=== PATIENT | female | born 1990 ===

== ENCOUNTER 2019-05-25 21:54 | Outpatient (CLI) | payer OTHER ==
[2019-05-25 22:11] VITALS: BP 115/62
[2019-05-25] MEDS ORDERED: LACTATED RINGERS 1,000 ML IV ONE (22:21)
== END 2019-05-25 22:53 | disposition home or self-care (01) ==
LOC: TRG 21:54
PROVIDERS: ATTEND Obstetrics & Gynecology
DX: O36.8120 Decreased fetal movements, second trimester, not applicable or unspecified (principal); Z3A.23 23 weeks gestation of pregnancy

== ENCOUNTER 2019-09-08 13:06 | Inpatient (IN) | payer OTHER ==
--- NOTE | 2019-09-08 15:18 | Ultrasound Report ---
ULTRASOUND BIOPHYSICAL PROFILE ULTRASOUND OB LIMITED INDICATION: Decreased movement TECHNIQUE: Transabdominal ultrasound imaging. COMPARISON: None FINDINGS: breathing movement = 2 Gross body movement = 2 tone = 0 Qualitative amniotic fluid volume = 0 Total biophysical score = 4/8 Amniotic fluid index is 5.2 cm. Presentation is cephalic. heart rate is 143 beats per minute. IMPRESSION: biophysical profile equals 4/8. Oligohydramnios. Signer Name: Dontae Hernandes Jr, MD Signed: 09/08/2019 3:14 PM Workstation Name: [id number]
[2019-09-08] MEDS ORDERED: OXYTOCIN 20 UNIT/1000ML DRIP 20 UNITS/1,000 ML BAG IV SCH ×2 (16:00→22:00)
[2019-09-08] MEDS ORDERED: TERBUTALINE 1 MG/1 ML INJ SUB-Q PRN (16:00)
[2019-09-08] MEDS ORDERED: LACTATED RINGERS 1,000 ML IV SCH (16:00)
[2019-09-08] MEDS ORDERED: TERBUTALINE 1 MG/1 ML INJ IVP PRN (16:00)
[2019-09-08] MEDS ORDERED: ePHEDrine SULFATE 50 MG/1 ML INJ IV PRN (16:30)
[2019-09-08] MEDS ORDERED: fentaNYL 100 MCG/2 ML INJ IV PRN (16:30)
[2019-09-08] MEDS ORDERED: BUTORPHANOL 2 MG/1 ML INJ IV PRN (16:30)
[2019-09-08] MEDS ORDERED: MINERAL OIL 30 ML ORAL LIQD PO PRN (16:30)
[2019-09-08] MEDS ORDERED: LIDOCAINE (2%) 20 MG/1 ML VIAL 20 ML MDV INFILTRATI NR (16:30)
[2019-09-08 16:33] LABS: Hematocrit 35.8 % (30.3-42.9); Hemoglobin 12.1 gm/dl (10.1-14.3); Mean Corpuscular HGB Conc 34 % (30-34); Mean Corpuscular Volume 86 fl (79-97); Platelet Count 207 K/mm3 (140-440); Red Blood Count 4.17 M/mm3 (3.65-5.03); Red Cell Distribution Width 14.7 % (13.2-15.2)
[2019-09-08] MEDS ORDERED: OXYTOCIN DRIP 30 UNITS/500 ML BAG IV SCH (17:00)
--- NOTE | 2019-09-08 17:36 | History and Physical Report ---
History of Present Illness Date of examination: 09/08/19 Date of admission: 09/08/19 13:07 Chief complaint: Decreased movement History of present illness: 28yo G 4 P 3 0 0 3 @ 39 weeks 0 day sent from the office for NST/BPP/DEANA secondary to decreased movement. BPP 4/, DEANA 5.2cm. She reports cramping but denies VB or LOF. She is a [employer] patient who initiated care at 19 weeks gestation. Her course was complicated by GDM diet-controlled (blood sugar this AM 88, per pt), late entry to care, and UTI. LABS: Opos, Antibody Screen neg, RI, VDRL NR, HBsAg neg, HIV neg, MSAFP neg, GC/CT/Trich neg, GBS neg Past History Past Medical History: other ( depression) Past Surgical History: no surgical history Family/Genetic History: none Social history: , lives with family, full code. denies: smoking, alcohol abuse, prescription drug abuse, IV drug use - Obstetrical History Expected Date of Delivery: 09/15/19 Actual Gestation: 39 Week(s) 0 Day(s) : 4 Para: 3 Hx # Term Pregnancies: 3 Number of Pregnancies: 0 Spontaneous Abortions: 0 Induced : 0 Number of Living Children: 3 #1 Gender: Female year: 2,[birth year] (06/08/2007) Birthweight: 3.629 kg (8 lbs) Method of Delivery: Vaginal Complications: none #2 Infant Gender: Female year: 2,011 (09/16/2008) Birthweight: 3.175 kg (7 lbs) Method of Delivery: Vaginal Complications: none #3 Gender: Male year: 2,[birth year] (07/29/2013) Birthweight: 3.345 kg (7 lbs 6 oz) Method of Delivery: Vaginal Complications: none Medications and Allergies Allergies Allergy/AdvReac Type Severity Reaction Status Date / Time No Known Allergies Allergy Verified 07/29/15 03:27 Home Medications Medication Instructions Recorded Confirmed Last Taken Type Vit-Fe Fumar-FA [ 1 tab PO DAILY 05/25/19 09/08/19 09/08/19 08:00 History Vitamin] Active Meds: Active Medications Butorphanol Tartrate (Stadol) 2 mg IV Q2H PRN PRN Reason: Pain , Severe (7-10) Ephedrine Sulfate (Ephedrine Sulfate) 10 mg IV Q2M PRN PRN Reason: Hypotension Fentanyl (Sublimaze) 100 mcg IV Q2H PRN PRN Reason: Labor Pain Oxytocin/Sodium Chloride (Pitocin/Ns 20 Unit/1000ml Drip) 20 units in 1,000 mls @ 125 mls/hr IV DIRECT MELE Lactated Ringer's (Lactated Ringers) 1,000 mls @ 125 mls/hr IV DIRECT MELE Oxytocin/Sodium Chloride (Pitocin/Ns 30 Unit/500ml) 30 units in 500 mls @ 2 mls/hr IV TITR MELE; Protocol Lidocaine (Xylocaine 2%) 20 ml INFILTRATI ONCE NR Stop: 09/09/19 16:29 Mineral Oil (Mineral Oil) 30 ml PO QHS PRN PRN Reason: Constipation Terbutaline Sulfate (Brethine) 0.25 mg SUB-Q ONCE PRN PRN Reason: Hyperstimulation/Hypertonicity Terbutaline Sulfate (Brethine) 0.25 mg IVP ONCE PRN PRN Reason: Hyperstimulation/Hypertonicity Review of Systems All systems: negative - Vital Signs Vital signs: Vital Signs Pulse Pulse Ox 85 95 09/08/19 13:42 09/08/19 13:42 Temp Pulse Resp BP Pulse Ox 98.7 F 87 20 122/70 98 09/08/19 13:46 09/08/19 17:24 09/08/19 13:46 09/08/19 17:24 09/08/19 17:02 - Physical Exam Abdomen: Positive: normal appearance, soft Genitourinary (Female): Positive: other (skin tag noted right inner thigh) Vagina: Positive: normal moisture - Obstetrical FHR: auscultation normal, category 1 FHR comments: baseline 130, moderate variability, 15x15 accels, no decels Uterine Contraction Monitor Mode: External Cervical Dilatation: 4 Cervical Effacement Percentage: 60 station: -2 Uterine Contraction Pattern: Regular Results Result Diagrams: 09/08/19 16:15 All other labs normal. Assessment and Plan - Patient Problems (1) 39 weeks gestation of Current Visit: Yes Status: Acute (2) Oligohydramnios in berkowitz in third trimester Current Visit: Yes Status: Acute (3) Abnormal test Current Visit: Yes Status: Acute (4) Encounter for induction of labor Current Visit: Yes Status: Acute Plan to address problem: Admit to L&D with routine labor orders Discussed plan of care with Dr. Delcid. He recommended AROM & Pitocin au gmentation AROM @ 17:21. No fluid noted Pitocin ordered for labor augmentation Patient left in the care of Dr. Delcid Anticipate vaginal delivery (5) Gestational diabetes mellitus, class A1 Current Visit: Yes Status: Acute Plan to address problem: Accuchecks q4hr
--- NOTE | 2019-09-08 21:24 | Procedure Note ---
OB Delivery Note - Delivery Date of Delivery: 09/08/19 Surgeon: LUKE SOTO Estimated blood loss: 200cc - Vaginal Delivery position: OA Delivery induction: oxytocin Delivery augmentation: rupture of membranes Delivery monitor: external FHT Route of delivery: Delivery placenta: spontaneous Delivery cord: 3 umbilical vessels Episiotomy: none Delivery laceration: none Anesthesia: none Delivery comments: The anterior shoulder was delivered without difficulty. Baby was bulb suctioned at the perineum and again after delivery. Delayed cord clamping was done. After the cord was cut the baby is handed off to the waiting team. No lacerations were noted. Placenta delivered spontaneously. Good hemostasis noted. Mother and baby are stable. Patient tolerated the delivery well. - Infant A at 1 minute: 8 at 5 minutes: 9 Infant Gender: Female
[2019-09-08] MEDS ORDERED: LANOLIN/ZINC/DIMETHICONE (LANSINOH) 7 GM TP PRN ×2 (21:25)
[2019-09-08] MEDS ORDERED: WITCH HAZEL/ GLYCERIN PAD TP PRN (21:25)
[2019-09-08] MEDS ORDERED: PROMETHAZINE 25 MG RECT SUPP PR PRN (21:25)
[2019-09-08] MEDS ORDERED: PROMETHAZINE 25 MG TAB PO PRN (21:25)
[2019-09-08] MEDS ORDERED: BENZOCAINE/MENTHOL 20/0.5% TOP SPRAY 56 GM TP PRN (21:25)
[2019-09-08] MEDS ORDERED: diphenhydrAMINE 25 MG CAP PO PRN (21:25)
[2019-09-08] MEDS ORDERED: HYDROCORTISONE 25 MG RECTAL SUPP PR PRN (21:25)
[2019-09-08] MEDS ORDERED: ACETAMINOPHEN 325 MG TAB PO PRN (21:25)
[2019-09-08] MEDS ORDERED: MAGNESIUM HYDROXIDE (MOM) ORAL LIQD UDC PO PRN (21:25)
[2019-09-08] MEDS ORDERED: ONDANSETRON 4 MG/2 ML INJ IV PRN (21:25)
[2019-09-08] MEDS ORDERED: IBUPROFEN 600 MG TAB PO SCH (22:00)
[2019-09-09] MEDS: DOCUSATE SODIUM 100 MG CAP PO SCH ×3 (00:09→22:45)
[2019-09-09] MEDS: IBUPROFEN 600 MG TAB PO SCH ×5 (00:09→22:45)
[2019-09-09] MEDS: SENNOSIDES/DOCUSATE SODIUM 8.6/50 MG TAB PO SCH ×3 (00:09→22:47)
[2019-09-09 05:59] LABS: Hematocrit 33.9 % (30.3-42.9); Hemoglobin 11.3 gm/dl (10.1-14.3)
--- NOTE | 2019-09-09 09:44 | Progress Note ---
Assessment and Plan - Patient Problems (1) (normal spontaneous vaginal delivery) Current Visit: Yes Status: Acute Plan to address problem: Continue routine PP orders Anticipate d/c home tomorrow (2) Gestational diabetes mellitus, class A1 Current Visit: Yes Status: Acute Plan to address problem: Blood glucose results all normal since delivery Hgb A1c 6 mths Subjective - Subjective Date of service: 09/09/19 Principal diagnosis: S/P ; PPD#1 Interval history: See admission H & P; OB delivery summary and PP progress notes Patient reports: appetite normal, voiding normally, pain well controlled (with medications), flatus, ambulating normally [place]: doing well, bottle feeding Objective - Vital Signs Latest vital signs: Vital Signs Temp Pulse Resp BP BP Pulse Ox 09/09/19 06:16 18 09/09/19 05:17 98.0 F 81 18 106/67 92 09/09/19 05:16 18 09/09/19 01:09 18 09/09/19 00:09 18 09/08/19 23:32 97.6 F 80 18 125/83 99 09/08/19 20:42 106 H 96 09/08/19 20:39 99 H 94 09/08/19 20:37 95 H 95 09/08/19 20:32 114 H 98 09/08/19 20:30 109 H 95 09/08/19 20:25 109 H 96 09/08/19 20:24 106 H 121/78 09/08/19 20:20 93 H 97 09/08/19 20:15 107 H 97 09/08/19 20:10 89 96 09/08/19 20:05 90 96 09/08/19 20:03 97 H 94 09/08/19 20:00 99 H 96 09/08/19 19:56 86 94 09/08/19 19:55 91 H 94 09/08/19 19:54 88 120/70 09/08/19 19:50 96 H 96 09/08/19 19:45 103 H 97 09/08/19 19:40 88 97 09/08/19 19:35 90 97 09/08/19 19:30 99 H 95 09/08/19 19:25 98 H 108/69 96 09/08/19 19:20 96 H 97 09/08/19 19:18 105 H 94 09/08/19 19:15 101 H 96 09/08/19 19:10 96 H 96 09/08/19 19:05 93 H 97 09/08/19 19:00 101 H 97 09/08/19 18:55 90 97 09/08/19 18:54 104 H 107/63 09/08/19 18:50 100 H 97 09/08/19 18:45 89 97 09/08/19 18:40 82 96 09/08/19 18:38 14 09/08/19 18:35 82 98 09/08/19 18:30 82 98 09/08/19 18:25 83 99 09/08/19 18:24 82 130/74 09/08/19 18:20 85 98 09/08/19 18:15 80 97 09/08/19 17:55 89 117/72 09/08/19 17:24 87 122/70 09/08/19 17:23 98.1 F 09/08/19 17:02 93 H 98 09/08/19 16:54 80 116/70 09/08/19 16:24 92 H 123/83 09/08/19 16:21 93 H 98 09/08/19 16:16 85 96 09/08/19 16:11 104 H 96 09/08/19 16:06 83 98 09/08/19 15:54 79 18 112/71 98 09/08/19 15:34 87 97 09/08/19 15:29 94 H 96 09/08/19 15:28 93 H 92 09/08/19 15:24 91 H 96 09/08/19 15:19 88 96 09/08/19 15:14 90 96 09/08/19 15:09 81 114/70 97 09/08/19 13:55 104 H 94 09/08/19 13:52 106 H 96 09/08/19 13:47 95 H 96 09/08/19 13:46 98.7 F 98 H 20 124/78 96 09/08/19 13:45 91 H 124/78 09/08/19 13:42 85 95 Intake and Output 09/08/19 09/09/19 09/09/19 23:59 07:59 15:59 Intake Total 3.200 360 Output Total 500 Balance 3.200 -140 Intake: IV 3.200 PITOCin/NS 30 UNIT/500ML 3.200 30 units In 500 ml @ 2 MILLIUNITS/MIN 2 mls/hr IV TITR MELE Rx#:[id number] Intake, Free Water 360 Output: Urine 500 Void 500 Other: Total, Output Amount 500 Estimated Blood Loss 200 - Exam Breasts: Present: normal Cardiovascular: Present: Regular rate Lungs: Present: Normal air movement Abdomen: Present: soft Uterus: Present: firm, fundal height below umbilicus (U-1) Extremities: Present: normal Deep Tendon Reflex Grade: Normal +2 - Labs Labs: Abnormal lab results 09/08/19 09/08/19 09/09/19 Range/Units 18:18 19:32 02:18 POC Glucose 60 L 68 L 109 H (70-105)
--- NOTE | 2019-09-09 09:46 | Discharge Summary ---
Providers - Providers Date of Admission: 09/08/19 13:07 Date of discharge: 09/10/19 (1200) Attending physician: LUKE SOTO Primary care physician: LUKE SOTO Hospitalization Reason for admission: active labor, IUP at term Delivery: Episiotomy: none Laceration: none Other procedures: none complications: none Discharge diagnosis: other (S/P ) [place] baby: female Hospital course: See admission H & P; OB delivery summary and PP progress notes Condition at discharge: Good Disposition: DC-01 TO HOME OR SELFCARE - Discharge Diagnoses (1) (normal spontaneous vaginal delivery) Status: Acute (2) Gestational diabetes mellitus, class A1 Status: Acute Plan - Provider Discharge Summary Activity: routine, no sex for 6 weeks, no heavy lifting 4 weeks, no strenuous exercise Diet: routine Instructions: routine Additional instructions: [] Smoking cessation referral if applicable(refer to patient education folder for contact #) [] Refer to [facility] Booklet Call your doctor immediately for: * Fever > 100.5 * Heavy vaginal bleeding ( >1 pad per hour) * Severe persistent headache * Shortness of breath * Reddened, hot, painful area to leg or breast - Follow up plan Follow up: LUKE SOTO MD [Primary Care Provider] - 6 Weeks
[2019-09-10] MEDS: IBUPROFEN 600 MG TAB PO SCH ×2 (06:48→11:06)
[2019-09-10] MEDS: DOCUSATE SODIUM 100 MG CAP PO SCH (11:06)
[2019-09-10 15:17] VITALS: BP 107/68
[2019-09-10] MEDS: SENNOSIDES/DOCUSATE SODIUM 8.6/50 MG TAB PO SCH (17:29)
== END 2019-09-10 15:30 | disposition home or self-care (01) | DRG 807 ==
LOC: TRG 13:06 → LD 13:07 → OBSVTOIN 13:07 → TRG 13:08 → OB 23:18
PROVIDERS: ADMIT Obstetrics & Gynecology; ATTEND Obstetrics & Gynecology
PROC: 10E0XZZ Delivery of Products of Conception, External Approach (ICD-10-PCS; principal; 2019-09-08)
PROC: 3E033VJ Introduction of Other Hormone into Peripheral Vein, Percutaneous Approach (ICD-10-PCS; 2019-09-08)
DX: O41.03X0 Oligohydramnios, third trimester, not applicable or unspecified (principal); Z37.0 Single live birth; O24.420 Gestational diabetes mellitus in childbirth, diet controlled; Z3A.39 39 weeks gestation of pregnancy
CPT/HCPCS: 36415; 76815; 76819; 82962; 85014; 85018; 85027; 86850; 86900; 86901; G0378; J0595; J2590; J3010; J7120